=== PATIENT | male | born 1995 | race Caucasian/White ===

== ENCOUNTER 2017-01-30 16:01 | Emergency (ER) | payer MEDICAID, SELFPAY ==
[~2017-01-30] VITALS: Ht 177.8 cm; Wt 74.8 kg
[2017-01-30] MEDS ORDERED: CLINDAMYCIN 150 MG CAP PO ONE (18:15)
[2017-01-30] MEDS ORDERED: LIDOCAINE 2% MDV 20 ML VIAL SC ONE (18:15)
[2017-01-30] MEDS ORDERED: BUPIVACAINE HCL 0.5% 10 ML VIAL SC ONE (18:15)
[2017-01-30] MEDS ORDERED: TYLE325C PO (18:50)
[2017-01-30] MEDS ORDERED: CLEO300C2 PO (18:50)
[2017-01-30] MEDS ORDERED: NAPR500T2 PO (18:50)
[2017-01-30 19:11] VITALS: BP 128/77
== END 2017-01-30 19:13 | disposition home or self-care (01) ==
LOC: M ED 17:22
DX: K02.9 Dental caries, unspecified (principal); K04.7 Periapical abscess without sinus